=== PATIENT | male | born 1965 | race Two or more races ===

== ENCOUNTER 2021-03-06 06:30 | Inpatient (IN) | payer MEDICAID, OTHER ==
[~2021-03-06] VITALS: Ht 182.9 cm; Wt 127.0 kg
[2021-03-06] MEDS ORDERED: FUROSEMIDE 40 MG/4 ML VIAL IV ONE (06:45)
[2021-03-06 07:13] LABS: Basophils # (auto) 0.1 10 ^3/uL (0-0.2); Basophils % (auto) 0.9 % (0.0-2.0); Eosinophils # (auto) 0.2 10 ^3/uL (0-0.8); Eosinophils % (auto) 2.2 % (0.0-7.0); Hematocrit 29.9 % (41.0-53.0); Lymphocytes # (auto) 0.7 10 ^3/uL (0.4-5.4); Mean Corpuscular Hemoglobin 28.5 pg (28.0-32.0); Mean Corpuscular Hgb Conc. 33.4 g/dL (32.0-36.0); Mean Corpuscular Volume 85.4 fL (80.0-100.0); Monocytes # (auto) 1.2 10 ^3/uL (0-1.3); Monocytes % (auto) 13.8 % (0.0-12.0); Neutrophils # (auto) 6.7 10 ^3/uL (1.6-8.6); Neutrophils % (auto) 75.1 % (37.0-80.0); Red Cell Distribution Width 15.7 % (11.8-14.3); White Blood Cell 8.9 10^3/uL (4.4-10.8)
[2021-03-06 07:26] LABS: INR 1.24 (0.9-1.15)
[2021-03-06 07:37] LABS: Albumin 2.3 g/dL (3.4-5.0); Anion Gap 8 (5-15); Blood Urea Nitrogen 64 mg/dL (7-18); Calcium 8.3 mg/dL (8.5-10.1); Carbon Dioxide 22 mmol/L (21-32); Chloride 112 mmol/L (98-107); Glucose 54 mg/dL (74-106); Potassium 3.8 mmol/L (3.5-5.1); Sodium 142 mmol/L (136-145)
[2021-03-06 07:43] LABS: Alanine Aminotransferase 16 U/L (16-61); Alkaline Phosphatase 255 U/L (45-117); Aspartate Aminotransferase 29 U/L (15-37); BUN/Creatinine Ratio 18.1; GFR African American 23 mL/min; GFR Non-African American 19 mL/min; Total Protein 6.8 g/dL (6.4-8.2)
[2021-03-06] MEDS ORDERED: ALBUTEROL SULF 2.5 MG/0.5ML(0.5%) NEB SOLN NEB PRN (13:00)
[2021-03-06] MEDS ORDERED: MORPHINE SULF INJ 2 MG/ML SYRINGE 1ML IV PRN (13:00)
[2021-03-06] MEDS ORDERED: NITROGLYCERIN 0.4 MG SL TAB SL PRN (13:00)
[2021-03-06 14:20] VITALS: BP 127/87
[2021-03-06] MEDS ORDERED: BUMETANIDE 2.5mg/10ml (0.25 mg/ml) INJ IV ONE (20:45)
[2021-03-06] MEDS ORDERED: PNEUMOCOCCAL VACC POLYS 25 MCG/0.5 ML VIAL IM ONE (21:00)
[2021-03-06 22:00] VITALS: BP 127/89
[2021-03-06] MEDS ORDERED: FUROSEMIDE 40 MG/4 ML VIAL IV SCH (23:15)
[2021-03-07 05:00] VITALS: BP 108/65
[2021-03-07] MEDS: BUMETANIDE 2.5mg/10ml (0.25 mg/ml) INJ IV SCH ×2 (06:21→18:42)
[2021-03-07 06:48] LABS: Basophils # (auto) 0 10 ^3/uL (0-0.2); Basophils % (auto) 0.6 % (0.0-2.0); Eosinophils # (auto) 0.2 10 ^3/uL (0-0.8); Hematocrit 31.6 % (41.0-53.0); Hemoglobin 10.5 g/dL (13.5-17.5); Lymphocytes # (auto) 0.8 10 ^3/uL (0.4-5.4); Lymphocytes % (auto) 10.3 % (10.0-50.0); Mean Corpuscular Hemoglobin 28.7 pg (28.0-32.0); Mean Corpuscular Hgb Conc. 33.4 g/dL (32.0-36.0); Mean Corpuscular Volume 85.9 fL (80.0-100.0); Monocytes # (auto) 1.2 10 ^3/uL (0-1.3); Monocytes % (auto) 14.2 % (0.0-12.0); Neutrophils # (auto) 5.9 10 ^3/uL (1.6-8.6); Neutrophils % (auto) 72.9 % (37.0-80.0); Red Blood Cells 3.67 10^6/uL (4.5-5.90); Red Cell Distribution Width 15.9 % (11.8-14.3); White Blood Cell 8.2 10^3/uL (4.4-10.8)
[2021-03-07 06:56] LABS: Albumin 2.2 g/dL (3.4-5.0); Calcium 8.2 mg/dL (8.5-10.1); Potassium 4.3 mmol/L (3.5-5.1)
[2021-03-07 07:05] LABS: BUN/Creatinine Ratio 18.8; Bilirubin, Direct 1.6 mg/dL (0-0.2); Bilirubin, Total 2.2 mg/dL (0.2-1.0); Total Protein 6.4 g/dL (6.4-8.2)
[2021-03-07 08:18] VITALS: BP 149/81
[2021-03-07] MEDS ORDERED: metOLazone 5 MG TAB PO ONE (11:45)
[2021-03-07 13:00] VITALS: BP 145/93
[2021-03-07 16:25] VITALS: BP 133/79
[2021-03-07] MEDS ORDERED: BUMETANIDE 2.5mg/10ml (0.25 mg/ml) INJ IV SCH (18:00)
[2021-03-07 22:00] VITALS: BP 140/88
[2021-03-08 05:00] VITALS: BP 113/68
[2021-03-08] MEDS: BUMETANIDE 2.5mg/10ml (0.25 mg/ml) INJ IV SCH ×2 (06:50→17:57)
[2021-03-08 08:53] VITALS: BP 108/69
[2021-03-08 12:32] VITALS: BP 135/81
[2021-03-08 14:16] LABS: Calcium 8.3 mg/dL (8.5-10.1); Potassium 4.2 mmol/L (3.5-5.1)
[2021-03-08 14:18] LABS: BUN/Creatinine Ratio 19.5
[2021-03-08 16:51] VITALS: BP 135/95
[2021-03-08] MEDS ORDERED: FURO1TAB31 PO (17:54)
[2021-03-08 18:24] VITALS: BP 135/95
[2021-03-09 08:41] LABS: Hepatitis B Surface Antibody Negative
[2021-03-09 09:18] LABS: Hepatitis A Total Antibody Negative
[2021-03-09 09:41] LABS: Hepatitis B Core Total AB Negative; Hepatitis B Surface Antigen Negative (Negative); Hepatitis C Antibody Negative (Negative)
== END 2021-03-08 19:05 | disposition home health service (06) | DRG 425 ==
LOC: ER 06:30 → TELE 12:47 → TELE-CENTR 21:15
PROVIDERS: ADMIT Internal Medicine; ATTEND Internal Medicine
PROC: 0W9G30Z Drainage of Peritoneal Cavity with Drainage Device, Percutaneous Approach (ICD-10-PCS; principal; 2021-03-06)
DX: E87.70 Fluid overload, unspecified (principal); I50.43 Acute on chronic combined systolic (congestive) and diastolic (congestive) heart failure; N18.6 End stage renal disease; R18.8 Other ascites; E11.22 Type 2 diabetes mellitus with diabetic chronic kidney disease; D64.9 Anemia, unspecified; E78.5 Hyperlipidemia, unspecified; Z20.822 Contact with and (suspected) exposure to COVID-19; I13.2 Hypertensive heart and chronic kidney disease with heart failure and with stage 5 chronic kidney disease, or end stage renal disease; Z79.899 Other long term (current) drug therapy; Z91.15 Patient's noncompliance with renal dialysis; Z91.19 Patient's noncompliance with other medical treatment and regimen; Z99.2 Dependence on renal dialysis; Z88.8 Allergy status to other drugs, medicaments and biological substances
CPT/HCPCS: 36415; 71045; 74176; 76700; 76942; 80048; 80053; 80076; 82306; 82962; 83605; 83880; 84100; 84484; 85025; 85610; 85730; 86704; 86706; 86708; 86803; 87040; 87081; 87205; 87340; 87426; 89051; 93970; 96374; 96375; 99291; G0378

== ENCOUNTER 2021-07-01 11:44 | Emergency (ER) | payer MEDICAID ==
[~2021-07-01] VITALS: Ht 180.3 cm; Wt 117.9 kg
[~2021-07-01 11:44] MED LIST: FURO1TAB31 PO
[2021-07-01 11:58] VITALS: BP 129/70
== END 2021-07-01 18:01 | disposition left against medical advice (07) ==
LOC: ER 11:44
DX: S81.801A Unspecified open wound, right lower leg, initial encounter (principal); Z53.21 Procedure and treatment not carried out due to patient leaving prior to being seen by health care provider; W18.39XA Other fall on same level, initial encounter; Y93.89 Activity, other specified; Y92.89 Other specified places as the place of occurrence of the external cause; Y99.8 Other external cause status

== ENCOUNTER 2021-12-30 16:53 | Inpatient (IN) | payer MEDICAID ==
[~2021-12-30] VITALS: Ht 177.8 cm; Wt 89.0 kg
[2021-12-30 18:22] LABS: Basophils # (auto) 0 10 ^3/uL (0-0.2); Basophils % (auto) 0.2 % (0.0-2.0); Eosinophils # (auto) 0 10 ^3/uL (0-0.8); Hematocrit 28.1 % (41.0-53.0); Hemoglobin 9.3 g/dL (13.5-17.5); Lymphocytes # (auto) 0.6 10 ^3/uL (0.4-5.4); Lymphocytes % (auto) 2.9 % (10.0-50.0); Mean Corpuscular Hemoglobin 28.1 pg (28.0-32.0); Mean Corpuscular Hgb Conc. 33.2 g/dL (32.0-36.0); Mean Corpuscular Volume 84.7 fL (80.0-100.0); Monocytes % (auto) 9.7 % (0.0-12.0); Neutrophils # (auto) 18.4 10 ^3/uL (1.6-8.6); Neutrophils % (auto) 87.2 % (37.0-80.0); Red Blood Cells 3.32 10^6/uL (4.5-5.90); Red Cell Distribution Width 15.1 % (11.8-14.3); White Blood Cell 21.1 10^3/uL (4.4-10.8)
[2021-12-30 18:31] LABS: Albumin 1.6 g/dL (3.4-5.0); BUN/Creatinine Ratio 8.8; Calcium 8.1 mg/dL (8.5-10.1)
[2021-12-30 18:35] LABS: Bilirubin, Total 3.9 mg/dL (0.2-1.0); Total Protein 5.7 g/dL (6.4-8.2)
[2021-12-30] MEDS ORDERED: PIPERACILLIN-TAZOB 3.375GM 100 ML IV ONE (19:30)
[2021-12-30] MEDS ORDERED: VANCOMYCIN 1GM/250ML 250 ML IV ONE (19:30)
[2021-12-30] MEDS ORDERED: SODIUM CHLORIDE 0.9% 3,000 ML IV ONE (19:30)
[2021-12-30] MEDS ORDERED: LOPERAMIDE HCL 2 MG CAP/TAB PO ONE (19:45)
[2021-12-30] MEDS ORDERED: SODIUM CHLORIDE 0.9% 1,000 ML IV ONE (19:45)
[2021-12-30] MEDS ORDERED: ONDANSETRON HCL 4 MG/2 ML VIAL ONE (21:18)
[2021-12-30] MEDS ORDERED: ONDANSETRON HCL 4 MG/2 ML VIAL IV ONE (21:20)
[2021-12-30] MEDS ORDERED: hydrALAZINE HCL 20 MG/ML VL IV PRN ×2 (23:30)
[2021-12-30] MEDS ORDERED: MORPHINE SULFATE INJ 2 MG/ml SYRG IV PRN (23:30)
[2021-12-30] MEDS ORDERED: NITROGLYCERIN 0.4 MG SL TAB SL PRN (23:30)
[2021-12-30] MEDS ORDERED: DEXTROSE (50%) 50ML SYRG IV PRN (23:30)
[2021-12-31] MEDS: cefTRIAXone 1GM/50ML D5W 50 ML IV SCH ×2 (00:10→09:42)
[2021-12-31 00:28] LABS: Albumin 1.7 g/dL (3.4-5.0); BUN/Creatinine Ratio 9.1; Calcium 8.2 mg/dL (8.5-10.1); Potassium 4.1 mmol/L (3.5-5.1)
[2021-12-31 00:30] LABS: Bilirubin, Total 4.2 mg/dL (0.2-1.0); Total Protein 5.6 g/dL (6.4-8.2)
[2021-12-31 03:11] VITALS: BP 101/56
[2021-12-31 05:00] VITALS: BP 97/55
[2021-12-31] MEDS: InsuLIN REG 1unit/0.01ml Soln (100units/ml) SC SCH ×4 (06:01→22:07)
[2021-12-31] MEDS: ACCU-CHEK COMFORT CURVE STRIP VI SCH ×4 (06:01→22:07)
[2021-12-31 07:16] LABS: Basophils # (auto) 0.1 10 ^3/uL (0-0.2); Basophils % (auto) 0.3 % (0.0-2.0); Eosinophils # (auto) 0.3 10 ^3/uL (0-0.8); Eosinophils % (auto) 1.4 % (0.0-7.0); Hematocrit 28.2 % (41.0-53.0); Hemoglobin 9.2 g/dL (13.5-17.5); Lymphocytes # (auto) 0.8 10 ^3/uL (0.4-5.4); Lymphocytes % (auto) 3.9 % (10.0-50.0); Mean Corpuscular Hemoglobin 27.9 pg (28.0-32.0); Mean Corpuscular Hgb Conc. 32.6 g/dL (32.0-36.0); Mean Corpuscular Volume 85.7 fL (80.0-100.0); Monocytes # (auto) 1.8 10 ^3/uL (0-1.3); Neutrophils # (auto) 16.9 10 ^3/uL (1.6-8.6); Neutrophils % (auto) 85.4 % (37.0-80.0); Red Blood Cells 3.29 10^6/uL (4.5-5.90); Red Cell Distribution Width 15.2 % (11.8-14.3); White Blood Cell 19.7 10^3/uL (4.4-10.8)
[2021-12-31 07:31] LABS: BUN/Creatinine Ratio 9.4; Calcium 8.2 mg/dL (8.5-10.1); Potassium 4.3 mmol/L (3.5-5.1)
[2021-12-31] MEDS ORDERED: MIDO10TA2 PO (08:18)
[2021-12-31] MEDS ORDERED: ASPI-543 PO (08:18)
[2021-12-31] MEDS ORDERED: SEVE800T8 PO (08:19)
[2021-12-31] MEDS ORDERED: FURO40TA4 PO (08:19)
[2021-12-31 08:49] VITALS: BP 90/64
[2021-12-31 08:54] LABS: INR 1.23 (0.9-1.15); Partial Thromboplastin Time 31.6 sec (23.6-33.0)
[2021-12-31] MEDS ORDERED: ALBUMIN 25% 100 ML IV ONE (09:15)
[2021-12-31] MEDS: MIDODRINE HCL 10 MG TAB PO SCH ×2 (09:30→18:05)
[2021-12-31] MEDS: HEPARIN SODIUM (PORCINE) 5000 UNITS/ML 1ML VIAL SC SCH ×2 (10:00→22:06)
[2021-12-31 12:49] VITALS: BP 95/53
[2021-12-31 16:20] VITALS: BP 90/48
[2021-12-31 22:00] VITALS: BP 100/56
[2022-01-01 05:00] VITALS: BP 77/39
[2022-01-01] MEDS: ACCU-CHEK COMFORT CURVE STRIP VI SCH ×4 (06:55→23:10)
[2022-01-01] MEDS: MIDODRINE HCL 10 MG TAB PO SCH ×3 (06:55→18:20)
[2022-01-01] MEDS: InsuLIN REG 1unit/0.01ml Soln (100units/ml) SC SCH ×4 (06:56→22:00)
[2022-01-01] MEDS ORDERED: SODIUM CHL 0.9% 1000 ML BAG XX ONE (07:00)
[2022-01-01 08:00] VITALS: BP 105/60
[2022-01-01] MEDS: cefTRIAXone 1GM/50ML D5W 50 ML IV SCH (08:54)
[2022-01-01 10:36] LABS: Basophils # (auto) 0.2 10 ^3/uL (0-0.2); Basophils % (auto) 1.1 % (0.0-2.0); Eosinophils # (auto) 0.2 10 ^3/uL (0-0.8); Eosinophils % (auto) 1.3 % (0.0-7.0); Hematocrit 28.9 % (41.0-53.0); Hemoglobin 9.5 g/dL (13.5-17.5); Lymphocytes # (auto) 0.6 10 ^3/uL (0.4-5.4); Mean Corpuscular Hemoglobin 28.1 pg (28.0-32.0); Mean Corpuscular Hgb Conc. 32.7 g/dL (32.0-36.0); Mean Corpuscular Volume 85.9 fL (80.0-100.0); Monocytes # (auto) 0.9 10 ^3/uL (0-1.3); Neutrophils # (auto) 12.9 10 ^3/uL (1.6-8.6); Neutrophils % (auto) 87.6 % (37.0-80.0); Red Blood Cells 3.36 10^6/uL (4.5-5.90); Red Cell Distribution Width 15.5 % (11.8-14.3); White Blood Cell 14.7 10^3/uL (4.4-10.8)
[2022-01-01] MEDS: DOPamine 1600MCG/ML D5W 250 ML IV SCH (11:44)
[2022-01-01 12:00] VITALS: BP 118/69
[2022-01-01] MEDS: HEPARIN SODIUM (PORCINE) 5000 UNITS/ML 1ML VIAL SC SCH ×2 (12:19→22:00)
[2022-01-01] MEDS: FUROSEMIDE 100 MG/10ML VIAL IV SCH (12:38)
[2022-01-01 16:00] VITALS: BP 111/67
[2022-01-01] MEDS ORDERED: ALBUMIN 25% 100 ML IV ONE (16:15)
[2022-01-01] MEDS ORDERED: EPOETIN ALFA-EPBX 10,000 UNIT/1ML VIAL SC ONE (21:00)
[2022-01-01 22:00] VITALS: BP 110/59
[2022-01-02 05:00] VITALS: BP 118/65
[2022-01-02] MEDS: MIDODRINE HCL 10 MG TAB PO SCH ×3 (06:09→18:16)
[2022-01-02] MEDS: ACCU-CHEK COMFORT CURVE STRIP VI SCH ×4 (06:36→22:07)
[2022-01-02] MEDS: InsuLIN REG 1unit/0.01ml Soln (100units/ml) SC SCH ×4 (06:37→22:00)
[2022-01-02 07:36] LABS: Potassium 4.1 mmol/L (3.5-5.1)
[2022-01-02 07:42] LABS: BUN/Creatinine Ratio 9.2; Calcium 8.7 mg/dL (8.5-10.1)
[2022-01-02 09:00] VITALS: BP 91/50
[2022-01-02] MEDS: cefTRIAXone 1GM/50ML D5W 50 ML IV SCH (09:50)
[2022-01-02] MEDS: HEPARIN SODIUM (PORCINE) 5000 UNITS/ML 1ML VIAL SC SCH ×2 (09:51→22:08)
[2022-01-02] MEDS: HYDROcodone-ACET 5/325MG TAB PO PRN (09:52)
[2022-01-02] MEDS: DOPamine 1600MCG/ML D5W 250 ML IV SCH (10:01)
[2022-01-02] MEDS: FUROSEMIDE 100 MG/10ML VIAL IV SCH (12:13)
[2022-01-02 13:00] VITALS: BP 102/45
[2022-01-02 16:58] VITALS: BP 91/58
[2022-01-02 22:00] VITALS: BP_SYST 115; BP_SYST 137; BP_DIAS 71
[2022-01-03 05:00] VITALS: BP 98/50
[2022-01-03] MEDS: MIDODRINE HCL 10 MG TAB PO SCH ×3 (06:10→17:43)
[2022-01-03] MEDS: ACCU-CHEK COMFORT CURVE STRIP VI SCH ×4 (06:38→22:01)
[2022-01-03] MEDS: InsuLIN REG 1unit/0.01ml Soln (100units/ml) SC SCH ×4 (06:40→22:00)
[2022-01-03 09:00] VITALS: BP 111/66
[2022-01-03] MEDS: cefTRIAXone 1GM/50ML D5W 50 ML IV SCH (09:39)
[2022-01-03] MEDS: FUROSEMIDE 100 MG/10ML VIAL IV SCH (09:39)
[2022-01-03] MEDS: HEPARIN SODIUM (PORCINE) 5000 UNITS/ML 1ML VIAL SC SCH ×2 (09:40→22:16)
[2022-01-03] MEDS ORDERED: VANCOMYCIN PER PHARMACY 0 MG IV SCH (11:45)
[2022-01-03] MEDS ORDERED: VANCOMYCIN 1GM/250ML 250 ML IV ONE (12:45)
[2022-01-03 13:00] VITALS: BP 83/43
[2022-01-03] MEDS: ONDANSETRON HCL 4 MG/2 ML VIAL IV PRN (14:41)
[2022-01-03 17:00] VITALS: BP 102/57
[2022-01-03 22:00] VITALS: BP 97/55
[2022-01-04 05:00] VITALS: BP 82/40
[2022-01-04] MEDS: MIDODRINE HCL 10 MG TAB PO SCH ×3 (05:42→18:00)
[2022-01-04] MEDS: ACCU-CHEK COMFORT CURVE STRIP VI SCH ×4 (06:15→21:47)
[2022-01-04] MEDS: ONDANSETRON HCL 4 MG/2 ML VIAL IV PRN (06:15)
[2022-01-04] MEDS: InsuLIN REG 1unit/0.01ml Soln (100units/ml) SC SCH ×4 (06:15→21:47)
[2022-01-04 07:02] LABS: Hematocrit 30.1 % (41.0-53.0); Hemoglobin 10.1 g/dL (13.5-17.5); Mean Corpuscular Hgb Conc. 33.5 g/dL (32.0-36.0); Mean Corpuscular Volume 83.6 fL (80.0-100.0); Red Blood Cells 3.61 10^6/uL (4.5-5.90); Red Cell Distribution Width 14.9 % (11.8-14.3); White Blood Cell 12.5 10^3/uL (4.4-10.8)
[2022-01-04 07:09] LABS: Basophils % (manual) 0 (0.0-2.0); Blast Cells 0; Metamyelocytes % 0; Myelocytes % 0; Promyelocytes % 0; Reactive Lymphocytes 0
[2022-01-04 07:23] LABS: BUN/Creatinine Ratio 9.1; Calcium 8.5 mg/dL (8.5-10.1); Potassium 4.4 mmol/L (3.5-5.1)
[2022-01-04] MEDS: cefTRIAXone 1GM/50ML D5W 50 ML IV SCH (08:56)
[2022-01-04] MEDS: B-COMPLEX W/ C & FOLIC ACID(NEPHROVITE TAB) PO SCH (08:59)
[2022-01-04 09:00] VITALS: BP 85/43
[2022-01-04] MEDS: HEPARIN SODIUM (PORCINE) 5000 UNITS/ML 1ML VIAL SC SCH ×2 (09:00→21:47)
[2022-01-04] MEDS: Nepro With Carbsteady Vanilla 8oz Carton PO SCH (09:03)
[2022-01-04] MEDS: FUROSEMIDE 100 MG/10ML VIAL IV SCH (10:00)
[2022-01-04 12:00] VITALS: BP 89/46
[2022-01-04 13:15] LABS: Band Neutrophils % (manual) 5; Eosinophils % (manual) 2 (0-7); Lymphocytes % (manual) 6 (10.0-50.0); Monocytes % (manual) 7 (0-12)
[2022-01-04] MEDS ORDERED: VANCOMYCIN 1GM/250ML 250 ML IV ONE (14:00)
[2022-01-04 17:00] VITALS: BP 113/46
[2022-01-04 22:00] VITALS: BP 99/63
[2022-01-05 04:00] VITALS: BP 97/55
[2022-01-05 05:26] LABS: Basophils # (auto) 0.1 10 ^3/uL (0-0.2); Basophils % (auto) 0.5 % (0.0-2.0); Eosinophils # (auto) 0.3 10 ^3/uL (0-0.8); Eosinophils % (auto) 2.6 % (0.0-7.0); Hematocrit 29.3 % (41.0-53.0); Hemoglobin 9.9 g/dL (13.5-17.5); Lymphocytes # (auto) 0.9 10 ^3/uL (0.4-5.4); Lymphocytes % (auto) 8.1 % (10.0-50.0); Mean Corpuscular Hemoglobin 28.2 pg (28.0-32.0); Mean Corpuscular Hgb Conc. 33.7 g/dL (32.0-36.0); Mean Corpuscular Volume 83.9 fL (80.0-100.0); Monocytes % (auto) 8.9 % (0.0-12.0); Neutrophils % (auto) 79.9 % (37.0-80.0); Red Blood Cells 3.49 10^6/uL (4.5-5.90); Red Cell Distribution Width 14.9 % (11.8-14.3); White Blood Cell 11.3 10^3/uL (4.4-10.8)
[2022-01-05] MEDS: ACCU-CHEK COMFORT CURVE STRIP VI SCH ×4 (05:27→21:31)
[2022-01-05] MEDS: InsuLIN REG 1unit/0.01ml Soln (100units/ml) SC SCH ×4 (05:27→21:30)
[2022-01-05] MEDS: MIDODRINE HCL 10 MG TAB PO SCH ×3 (05:27→17:07)
[2022-01-05 05:41] LABS: Calcium 8.5 mg/dL (8.5-10.1); Potassium 4.7 mmol/L (3.5-5.1)
[2022-01-05 05:47] LABS: BUN/Creatinine Ratio 9.3
[2022-01-05 09:00] VITALS: BP 101/48
[2022-01-05] MEDS: cefTRIAXone 1GM/50ML D5W 50 ML IV SCH (09:32)
[2022-01-05] MEDS: HEPARIN SODIUM (PORCINE) 5000 UNITS/ML 1ML VIAL SC SCH ×2 (09:33→21:56)
[2022-01-05] MEDS: FUROSEMIDE 100 MG/10ML VIAL IV SCH (09:33)
[2022-01-05] MEDS: B-COMPLEX W/ C & FOLIC ACID(NEPHROVITE TAB) PO SCH (09:33)
[2022-01-05] MEDS: Nepro With Carbsteady Vanilla 8oz Carton PO SCH (09:33)
[2022-01-05] MEDS ORDERED: ALBUMIN 25% 100 ML IV PRN (10:45)
[2022-01-05] MEDS ORDERED: SODIUM CHL 0.9% 1000 ML BAG XX ONE (10:45)
[2022-01-05 13:00] VITALS: BP 93/45
[2022-01-05 17:00] VITALS: BP 90/49
[2022-01-05] MEDS ORDERED: EPOETIN ALFA-EPBX 10,000 UNIT/1ML VIAL SC ONE (21:00)
[2022-01-05 22:00] VITALS: BP 108/54
[2022-01-05] MEDS ORDERED: VANCOMYCIN 500 MG in D5W 5% 100 ML IV ONE (22:30)
[2022-01-06 05:00] VITALS: BP 101/54
[2022-01-06] MEDS: MIDODRINE HCL 10 MG TAB PO SCH ×3 (05:46→17:09)
[2022-01-06] MEDS: ACCU-CHEK COMFORT CURVE STRIP VI SCH ×4 (06:10→22:33)
[2022-01-06] MEDS: InsuLIN REG 1unit/0.01ml Soln (100units/ml) SC SCH ×4 (06:10→22:00)
[2022-01-06 09:00] VITALS: BP 102/55
[2022-01-06] MEDS: cefTRIAXone 1GM/50ML D5W 50 ML IV SCH (09:04)
[2022-01-06] MEDS: FUROSEMIDE 100 MG/10ML VIAL IV SCH (09:04)
[2022-01-06] MEDS: B-COMPLEX W/ C & FOLIC ACID(NEPHROVITE TAB) PO SCH (09:04)
[2022-01-06 09:29] LABS: Calcium 8.8 mg/dL (8.5-10.1); Potassium 3.9 mmol/L (3.5-5.1)
[2022-01-06 09:32] LABS: BUN/Creatinine Ratio 8.4
[2022-01-06] MEDS: HEPARIN SODIUM (PORCINE) 5000 UNITS/ML 1ML VIAL SC SCH ×2 (10:18→22:33)
[2022-01-06] MEDS: Nepro With Carbsteady Vanilla 8oz Carton PO SCH (10:19)
[2022-01-06 12:53] LABS: INR 1.19 (0.9-1.15); Partial Thromboplastin Time 31.2 sec (23.6-33.0)
[2022-01-06 13:00] VITALS: BP 128/84
[2022-01-06 17:00] VITALS: BP 124/76
[2022-01-06 22:00] VITALS: BP 100/53
[2022-01-07 05:00] VITALS: BP 106/57
[2022-01-07] MEDS: MIDODRINE HCL 10 MG TAB PO SCH ×3 (05:49→17:13)
[2022-01-07] MEDS: ACCU-CHEK COMFORT CURVE STRIP VI SCH ×4 (06:22→22:02)
[2022-01-07] MEDS: InsuLIN REG 1unit/0.01ml Soln (100units/ml) SC SCH ×4 (06:23→22:00)
[2022-01-07 08:00] VITALS: BP 143/87
[2022-01-07] MEDS ORDERED: ALBUMIN 25% 100 ML IV ONE (08:30)
[2022-01-07 09:00] VITALS: BP_SYST 143; BP_DIAS 65; BP_DIAS 87
[2022-01-07] MEDS ORDERED: SODIUM CHL 0.9% 1000 ML BAG XX ONE (09:45)
[2022-01-07] MEDS: cefTRIAXone 1GM/50ML D5W 50 ML IV SCH (09:48)
[2022-01-07] MEDS: FUROSEMIDE 100 MG/10ML VIAL IV SCH (09:48)
[2022-01-07] MEDS: B-COMPLEX W/ C & FOLIC ACID(NEPHROVITE TAB) PO SCH (09:48)
[2022-01-07] MEDS: HEPARIN SODIUM (PORCINE) 5000 UNITS/ML 1ML VIAL SC SCH ×2 (09:49→22:00)
[2022-01-07] MEDS: Nepro With Carbsteady Vanilla 8oz Carton PO SCH (10:00)
[2022-01-07 12:45] VITALS: BP 131/82
[2022-01-07 16:47] VITALS: BP 131/81
[2022-01-07] MEDS: MORPHINE SULFATE INJ 2 MG/ml SYRG IV PRN (17:14)
[2022-01-07] MEDS ORDERED: ALBUMIN 25% IV ONE (17:54)
[2022-01-07] MEDS ORDERED: EPOETIN ALFA-EPBX 10,000 UNIT/1ML VIAL SC ONE (21:00)
[2022-01-07 22:40] VITALS: BP 103/56
[2022-01-08 04:48] VITALS: BP 109/62
[2022-01-08] MEDS: ACCU-CHEK COMFORT CURVE STRIP VI SCH ×4 (06:16→21:35)
[2022-01-08] MEDS: InsuLIN REG 1unit/0.01ml Soln (100units/ml) SC SCH ×4 (06:16→21:35)
[2022-01-08] MEDS: MIDODRINE HCL 10 MG TAB PO SCH ×3 (06:16→18:06)
[2022-01-08] MEDS ORDERED: SODIUM CHL 0.9% 1000 ML BAG XX ONE (07:00)
[2022-01-08 08:00] VITALS: BP 122/70
[2022-01-08] MEDS: Nepro With Carbsteady Vanilla 8oz Carton PO SCH (10:00)
[2022-01-08] MEDS: B-COMPLEX W/ C & FOLIC ACID(NEPHROVITE TAB) PO SCH (10:05)
[2022-01-08] MEDS: FUROSEMIDE 100 MG/10ML VIAL IV SCH (10:05)
[2022-01-08] MEDS: HEPARIN SODIUM (PORCINE) 5000 UNITS/ML 1ML VIAL SC SCH ×2 (10:22→21:34)
[2022-01-08 11:10] LABS: Basophils # (auto) 0.1 10 ^3/uL (0-0.2); Basophils % (auto) 0.7 % (0.0-2.0); Eosinophils # (auto) 0.2 10 ^3/uL (0-0.8); Eosinophils % (auto) 1.7 % (0.0-7.0); Hemoglobin 9.8 g/dL (13.5-17.5); Lymphocytes # (auto) 0.8 10 ^3/uL (0.4-5.4); Lymphocytes % (auto) 7.9 % (10.0-50.0); Mean Corpuscular Hemoglobin 27.9 pg (28.0-32.0); Mean Corpuscular Hgb Conc. 32.7 g/dL (32.0-36.0); Mean Corpuscular Volume 85.4 fL (80.0-100.0); Monocytes # (auto) 0.7 10 ^3/uL (0-1.3); Monocytes % (auto) 6.6 % (0.0-12.0); Neutrophils # (auto) 8.2 10 ^3/uL (1.6-8.6); Neutrophils % (auto) 83.1 % (37.0-80.0); Red Blood Cells 3.51 10^6/uL (4.5-5.90); Red Cell Distribution Width 15.4 % (11.8-14.3); White Blood Cell 9.9 10^3/uL (4.4-10.8)
[2022-01-08 11:33] LABS: BUN/Creatinine Ratio 8.1; Calcium 8.4 mg/dL (8.5-10.1); Potassium 4.5 mmol/L (3.5-5.1)
[2022-01-08 12:00] VITALS: BP 100/53
[2022-01-08 13:34] LABS: Hepatitis B Surface Antibody Negative (Negative)
[2022-01-08 14:11] LABS: Hepatitis A Total Antibody Negative (Negative)
[2022-01-08 14:29] LABS: Hepatitis C Antibody Negative (Negative)
[2022-01-08 16:00] VITALS: BP 112/68
[2022-01-08] MEDS: HYDROcodone-ACET 5/325MG TAB PO PRN (18:06)
[2022-01-08] MEDS ORDERED: VANCOMYCIN 750mg/250ml 250 ML IV ONE (20:00)
[2022-01-08] MEDS ORDERED: EPOETIN ALFA-EPBX 10,000 UNIT/1ML VIAL SC ONE (21:00)
[2022-01-08 22:00] VITALS: BP 119/50
[2022-01-09] MEDS: ACCU-CHEK COMFORT CURVE STRIP VI SCH ×4 (05:36→23:17)
[2022-01-09] MEDS: MIDODRINE HCL 10 MG TAB PO SCH ×3 (05:36→17:59)
[2022-01-09] MEDS: InsuLIN REG 1unit/0.01ml Soln (100units/ml) SC SCH ×4 (05:36→22:00)
[2022-01-09 06:00] VITALS: BP 124/68
[2022-01-09 07:33] LABS: Basophils # (auto) 0 10 ^3/uL (0-0.2); Basophils % (auto) 0.4 % (0.0-2.0); Eosinophils # (auto) 0.2 10 ^3/uL (0-0.8); Eosinophils % (auto) 2.1 % (0.0-7.0); Hematocrit 30.6 % (41.0-53.0); Hemoglobin 10.1 g/dL (13.5-17.5); Mean Corpuscular Hemoglobin 28.6 pg (28.0-32.0); Mean Corpuscular Hgb Conc. 33.1 g/dL (32.0-36.0); Mean Corpuscular Volume 86.4 fL (80.0-100.0); Monocytes # (auto) 0.9 10 ^3/uL (0-1.3); Monocytes % (auto) 8.5 % (0.0-12.0); Neutrophils # (auto) 8.9 10 ^3/uL (1.6-8.6); Nucleated Red Blood Cells % 0.1 %; Red Blood Cells 3.54 10^6/uL (4.5-5.90); Red Cell Distribution Width 15.6 % (11.8-14.3); White Blood Cell 11.2 10^3/uL (4.4-10.8)
[2022-01-09 07:45] LABS: BUN/Creatinine Ratio 8.4; Calcium 8.7 mg/dL (8.5-10.1); Magnesium 2.8 mg/dL (1.6-2.6)
[2022-01-09 08:00] VITALS: BP 114/63
[2022-01-09 09:00] VITALS: BP 114/63
[2022-01-09] MEDS: Nepro With Carbsteady Vanilla 8oz Carton PO SCH (10:00)
[2022-01-09 13:00] VITALS: BP 124/82
[2022-01-09] MEDS: B-COMPLEX W/ C & FOLIC ACID(NEPHROVITE TAB) PO SCH (15:11)
[2022-01-09] MEDS: FUROSEMIDE 100 MG/10ML VIAL IV SCH (15:11)
[2022-01-09] MEDS: HEPARIN SODIUM (PORCINE) 5000 UNITS/ML 1ML VIAL SC SCH ×2 (15:16→22:00)
[2022-01-09] MEDS: MORPHINE SULFATE INJ 2 MG/ml SYRG IV PRN (16:31)
[2022-01-09 17:00] VITALS: BP 116/61
[2022-01-09 22:00] VITALS: BP 110/58
[2022-01-10 05:00] VITALS: BP 91/55
[2022-01-10] MEDS: MIDODRINE HCL 10 MG TAB PO SCH ×3 (06:44→18:08)
[2022-01-10] MEDS: InsuLIN REG 1unit/0.01ml Soln (100units/ml) SC SCH ×4 (06:54→22:00)
[2022-01-10] MEDS: ACCU-CHEK COMFORT CURVE STRIP VI SCH ×4 (06:54→22:43)
[2022-01-10 09:00] VITALS: BP 93/52
[2022-01-10] MEDS: B-COMPLEX W/ C & FOLIC ACID(NEPHROVITE TAB) PO SCH (09:49)
[2022-01-10] MEDS: Nepro With Carbsteady Vanilla 8oz Carton PO SCH (09:50)
[2022-01-10] MEDS: HEPARIN SODIUM (PORCINE) 5000 UNITS/ML 1ML VIAL SC SCH ×2 (09:50→22:43)
[2022-01-10] MEDS: FUROSEMIDE 100 MG/10ML VIAL IV SCH (09:50)
[2022-01-10 13:00] VITALS: BP 107/58
[2022-01-10 17:00] VITALS: BP 102/53
[2022-01-10] MEDS: HYDROcodone-ACET 5/325MG TAB PO PRN (20:30)
[2022-01-10 22:00] VITALS: BP 103/52
[2022-01-11 05:00] VITALS: BP 99/59
[2022-01-11 06:02] LABS: BUN/Creatinine Ratio 8.3; Calcium 8.6 mg/dL (8.5-10.1); Potassium 4.8 mmol/L (3.5-5.1)
[2022-01-11] MEDS: MIDODRINE HCL 10 MG TAB PO SCH ×3 (06:30→17:50)
[2022-01-11] MEDS: ACCU-CHEK COMFORT CURVE STRIP VI SCH ×4 (06:49→21:27)
[2022-01-11] MEDS: InsuLIN REG 1unit/0.01ml Soln (100units/ml) SC SCH ×4 (06:49→21:36)
[2022-01-11 09:00] VITALS: BP 129/74
[2022-01-11] MEDS: Nepro With Carbsteady Vanilla 8oz Carton PO SCH (09:36)
[2022-01-11] MEDS: B-COMPLEX W/ C & FOLIC ACID(NEPHROVITE TAB) PO SCH (09:36)
[2022-01-11] MEDS: FUROSEMIDE 100 MG/10ML VIAL IV SCH (09:36)
[2022-01-11] MEDS: HEPARIN SODIUM (PORCINE) 5000 UNITS/ML 1ML VIAL SC SCH ×2 (09:37→21:42)
[2022-01-11 13:23] VITALS: BP 101/57
[2022-01-11 17:00] VITALS: BP 98/54
[2022-01-11] MEDS: HYDROcodone-ACET 5/325MG TAB PO PRN (21:48)
[2022-01-11 22:00] VITALS: BP 98/46
[2022-01-12 05:00] VITALS: BP 100/55
[2022-01-12] MEDS: MIDODRINE HCL 10 MG TAB PO SCH ×3 (06:20→18:33)
[2022-01-12 06:24] LABS: Albumin 2.2 g/dL (3.4-5.0); Calcium 8.6 mg/dL (8.5-10.1); Potassium 5.1 mmol/L (3.5-5.1)
[2022-01-12] MEDS: ACCU-CHEK COMFORT CURVE STRIP VI SCH ×4 (06:24→21:24)
[2022-01-12] MEDS: InsuLIN REG 1unit/0.01ml Soln (100units/ml) SC SCH ×4 (06:24→21:34)
[2022-01-12 06:27] LABS: Bilirubin, Total 1.4 mg/dL (0.2-1.0); Total Protein 6.5 g/dL (6.4-8.2)
[2022-01-12] MEDS ORDERED: SODIUM CHL 0.9% 1000 ML BAG XX ONE (07:00)
[2022-01-12 09:00] VITALS: BP 109/56
[2022-01-12] MEDS: HEPARIN SODIUM (PORCINE) 5000 UNITS/ML 1ML VIAL SC SCH ×2 (10:00→21:25)
[2022-01-12] MEDS: Nepro With Carbsteady Vanilla 8oz Carton PO SCH (10:02)
[2022-01-12] MEDS: B-COMPLEX W/ C & FOLIC ACID(NEPHROVITE TAB) PO SCH (10:02)
[2022-01-12] MEDS: FUROSEMIDE 100 MG/10ML VIAL IV SCH (10:02)
[2022-01-12 12:56] VITALS: BP 95/58
[2022-01-12 17:00] VITALS: BP 106/60
[2022-01-12] MEDS: HYDROcodone-ACET 5/325MG TAB PO PRN (19:51)
[2022-01-12] MEDS ORDERED: EPOETIN ALFA-EPBX 10,000 UNIT/1ML VIAL SC ONE (21:00)
[2022-01-12 22:00] VITALS: BP 101/54
[2022-01-13 04:52] LABS: Hematocrit 29.5 % (41.0-53.0); Hemoglobin 9.5 g/dL (13.5-17.5)
[2022-01-13 05:00] VITALS: BP 101/56
[2022-01-13 05:09] LABS: % Iron Saturation 16.8 % (20-55)
[2022-01-13] MEDS: MIDODRINE HCL 10 MG TAB PO SCH ×3 (06:05→18:00)
[2022-01-13] MEDS: InsuLIN REG 1unit/0.01ml Soln (100units/ml) SC SCH ×3 (06:05→17:00)
[2022-01-13] MEDS: ACCU-CHEK COMFORT CURVE STRIP VI SCH ×3 (06:07→17:00)
[2022-01-13] MEDS ORDERED: SODIUM CHL 0.9% 1000 ML BAG XX ONE (07:00)
[2022-01-13 09:03] VITALS: BP 123/76
[2022-01-13] MEDS: Nepro With Carbsteady Vanilla 8oz Carton PO SCH (10:00)
[2022-01-13] MEDS: B-COMPLEX W/ C & FOLIC ACID(NEPHROVITE TAB) PO SCH (11:24)
[2022-01-13] MEDS: HEPARIN SODIUM (PORCINE) 5000 UNITS/ML 1ML VIAL SC SCH (11:24)
[2022-01-13 11:33] VITALS: BP 123/76
[2022-01-13] MEDS: FUROSEMIDE 100 MG/10ML VIAL IV SCH (12:07)
[2022-01-13 13:00] VITALS: BP 109/59
[2022-01-13] MEDS ORDERED: VANCOMYCIN 750mg/250ml 250 ML IV ONE (14:45)
[2022-01-13 16:52] VITALS: BP 117/74
== END 2022-01-13 18:15 | DRG 720 ==
LOC: ER 16:53 → EDBD 16:53 → EDUNIT# 16:53 → TELE 23:19 → TELE-EAST 12-31 02:22
PROVIDERS: ADMIT Hospitalist; ATTEND Hospitalist
PROC: 0W9G3ZZ Drainage of Peritoneal Cavity, Percutaneous Approach (ICD-10-PCS; principal; 2021-12-31)
PROC: 5A1D70Z Performance of Urinary Filtration, Intermittent, Less than 6 Hours Per Day (ICD-10-PCS; 2022-01-01)
PROC: 5A1D70Z Performance of Urinary Filtration, Intermittent, Less than 6 Hours Per Day (ICD-10-PCS; 2022-01-05)
PROC: 0W9G3ZZ Drainage of Peritoneal Cavity, Percutaneous Approach (ICD-10-PCS; 2022-01-06)
PROC: 5A1D70Z Performance of Urinary Filtration, Intermittent, Less than 6 Hours Per Day (ICD-10-PCS; 2022-01-07)
PROC: 5A1D70Z Performance of Urinary Filtration, Intermittent, Less than 6 Hours Per Day (ICD-10-PCS; 2022-01-09)
PROC: 5A1D70Z Performance of Urinary Filtration, Intermittent, Less than 6 Hours Per Day (ICD-10-PCS; 2022-01-13)
DX: A41.9 Sepsis, unspecified organism (principal); J96.01 Acute respiratory failure with hypoxia; I13.2 Hypertensive heart and chronic kidney disease with heart failure and with stage 5 chronic kidney disease, or end stage renal disease; J15.212 Pneumonia due to Methicillin resistant Staphylococcus aureus; N18.6 End stage renal disease; R18.8 Other ascites; D63.1 Anemia in chronic kidney disease; E88.09 Other disorders of plasma-protein metabolism, not elsewhere classified; E11.22 Type 2 diabetes mellitus with diabetic chronic kidney disease; Z20.822 Contact with and (suspected) exposure to COVID-19; E11.51 Type 2 diabetes mellitus with diabetic peripheral angiopathy without gangrene; E66.9 Obesity, unspecified; I50.9 Heart failure, unspecified; R19.7 Diarrhea, unspecified; K74.60 Unspecified cirrhosis of liver; F10.10 Alcohol abuse, uncomplicated; J98.11 Atelectasis; Z68.36 Body mass index [BMI] 36.0-36.9, adult; Z79.899 Other long term (current) drug therapy; Z91.19 Patient's noncompliance with other medical treatment and regimen; Z99.2 Dependence on renal dialysis; Z88.8 Allergy status to other drugs, medicaments and biological substances
CPT/HCPCS: 36415; 71045; 76700; 76705; 76942; 80048; 80053; 80202; 80320; 82728; 82962; 83540; 83550; 83605; 83735; 83986; 85007; 85014; 85018; 85025; 85027; 85610; 85730; 86704; 86706; 86708; 86803; 87040; 87070; 87077; 87081; 87186; 87205; 87340; 89051; 90935; 93005; 93971; 96365; 96368; 96375; 97110; 97116; 97163; 97530; G0378; J0696; J1815; J2405; J7060; P9047

== ENCOUNTER 2022-03-02 14:45 | Inpatient (IN) | payer MEDICAID ==
[~2022-03-02] VITALS: Ht 177.8 cm; Wt 93.9 kg
[~2022-03-02 14:45] MED LIST changes: +ASPI-543 PO; -FURO1TAB31 PO; +FURO40TA4 PO; +MIDO10TA2 PO; +SEVE800T8 PO
[2022-03-02 15:50] LABS: Basophils # (auto) 0.1 10 ^3/uL (0-0.2); Eosinophils # (auto) 0.2 10 ^3/uL (0-0.8); Lymphocytes % (auto) 9.8 % (10.0-50.0); Mean Corpuscular Hgb Conc. 31.7 g/dL (32.0-36.0); Monocytes # (auto) 0.9 10 ^3/uL (0-1.3)
[2022-03-02 15:52] LABS: Basophils % (auto) 0.7 % (0.0-2.0); Hematocrit 24.8 % (41.0-53.0); Hemoglobin 7.8 g/dL (13.5-17.5); Mean Corpuscular Hemoglobin 27.1 pg (28.0-32.0); Mean Corpuscular Volume 85.8 fL (80.0-100.0); Monocytes % (auto) 8.9 % (0.0-12.0); Neutrophils # (auto) 8.1 10 ^3/uL (1.6-8.6); Neutrophils % (auto) 78.6 % (37.0-80.0); Nucleated Red Blood Cells % 0.1 %; Red Blood Cells 2.89 10^6/uL (4.5-5.90); Red Cell Distribution Width 18.7 % (11.8-14.3); White Blood Cell 10.3 10^3/uL (4.4-10.8)
[2022-03-02 16:07] LABS: INR 1.18 (0.9-1.15); Partial Thromboplastin Time 32.7 sec (24.6-33.4)
[2022-03-02 16:09] LABS: Albumin 2.4 g/dL (3.4-5.0); Calcium 8.4 mg/dL (8.5-10.1); Potassium 4.7 mmol/L (3.5-5.1)
[2022-03-02 16:13] LABS: Bilirubin, Total 1.2 mg/dL (0.2-1.0); Total Protein 7.2 g/dL (6.4-8.2)
[2022-03-02] MEDS ORDERED: DEXTROSE (50%) 50ML SYRG IV PRN (20:45)
[2022-03-02] MEDS ORDERED: MORPHINE SULFATE INJ 2 MG/ml SYRG IV PRN (20:45)
[2022-03-02] MEDS ORDERED: NITROGLYCERIN 0.4 MG SL TAB SL PRN (20:45)
[2022-03-02] MEDS ORDERED: TEMAZEPAM 15 MG CAP PO PRN (20:45)
[2022-03-02] MEDS ORDERED: ONDANSETRON HCL 4 MG/2 ML VIAL IV PRN (20:45)
[2022-03-02] MEDS ORDERED: FUROSEMIDE 100 MG/10ML VIAL IV ONE (20:45)
[2022-03-02] MEDS ORDERED: CARVEDILOL 3.125 MG TAB PO SCH (22:00)
[2022-03-02] MEDS: ATORVASTATIN 20 MG TAB PO SCH (22:00)
[2022-03-03] MEDS: ACCU-CHEK COMFORT CURVE STRIP VI SCH ×5 (00:08→23:30)
[2022-03-03 06:00] LABS: Basophils # (auto) 0.1 10 ^3/uL (0-0.2); Basophils % (auto) 0.6 % (0.0-2.0); Eosinophils # (auto) 0.2 10 ^3/uL (0-0.8); Eosinophils % (auto) 2.4 % (0.0-7.0); Hematocrit 24.9 % (41.0-53.0); Lymphocytes # (auto) 0.8 10 ^3/uL (0.4-5.4); Lymphocytes % (auto) 8.7 % (10.0-50.0); Mean Corpuscular Hemoglobin 27.3 pg (28.0-32.0); Mean Corpuscular Volume 85.2 fL (80.0-100.0); Monocytes # (auto) 0.8 10 ^3/uL (0-1.3); Monocytes % (auto) 8.2 % (0.0-12.0); Neutrophils # (auto) 7.3 10 ^3/uL (1.6-8.6); Neutrophils % (auto) 80.1 % (37.0-80.0); Nucleated Red Blood Cells % 0.1 %; Red Blood Cells 2.93 10^6/uL (4.5-5.90); Red Cell Distribution Width 18.2 % (11.8-14.3); White Blood Cell 9.1 10^3/uL (4.4-10.8)
[2022-03-03] MEDS ORDERED: MIDODRINE HCL 10 MG TAB PO SCH (06:00)
[2022-03-03] MEDS: InsuLIN REG 1unit/0.01ml Soln (100units/ml) SC SCH ×4 (06:00→18:44)
[2022-03-03 06:14] LABS: Albumin 2.4 g/dL (3.4-5.0); Calcium 8.6 mg/dL (8.5-10.1); Potassium 4.9 mmol/L (3.5-5.1)
[2022-03-03] MEDS: FUROSEMIDE 40 MG TAB PO SCH ×2 (06:16→18:37)
[2022-03-03 06:19] LABS: BUN/Creatinine Ratio 8.6; Bilirubin, Total 1.4 mg/dL (0.2-1.0); Total Protein 7.3 g/dL (6.4-8.2)
[2022-03-03] MEDS ORDERED: SODIUM CHL 0.9% 1000 ML BAG XX ONE (09:15)
[2022-03-03 09:50] LABS: % Iron Saturation 9.3 % (20-55)
[2022-03-03] MEDS: PANTOPRAZOLE 40 MG/10 ML VIAL INJ IV SCH (10:22)
[2022-03-03] MEDS: SEVELAMER 800 MG TAB PO SCH ×4 (10:22→18:37)
[2022-03-03] MEDS: MIDODRINE HCL 10 MG TAB PO SCH ×2 (12:00→13:36)
[2022-03-03 13:00] VITALS: BP 124/82
[2022-03-03] MEDS ORDERED: ALBUMIN 25% 100 ML IV ONE ×2 (13:00→13:45)
[2022-03-03 17:00] VITALS: BP 115/70
[2022-03-03] MEDS: TAMSULOSIN HYDROCHLORIDE 0.4 MG CAP PO SCH (18:36)
[2022-03-03] MEDS: SODIUM FERR GLUC 62.5MG/5ML 125 MG in SODIUM CHL 0.9% 100 ML IV SCH (18:57)
[2022-03-03 20:00] VITALS: BP 131/70
[2022-03-03] MEDS ORDERED: EPOETIN ALFA-EPBX 10,000 UNIT/1ML VIAL SC ONE (21:00)
[2022-03-03 22:00] VITALS: BP 131/70
[2022-03-03] MEDS: ATORVASTATIN 20 MG TAB PO SCH (22:00)
[2022-03-03] MEDS ORDERED: LORATADINE 10 MG TAB PO PRN (22:45)
[2022-03-04] VITALS (7 sets, daily range): BP systolic 78–120; BP diastolic 34–85
[2022-03-04] MEDS: FUROSEMIDE 40 MG TAB PO SCH ×2 (05:20→18:00)
[2022-03-04 05:25] LABS: Eosinophils # (auto) 0.1 10 ^3/uL (0-0.8); Nucleated Red Blood Cells % 0.1 %
[2022-03-04 05:28] LABS: Basophils # (auto) 0.1 10 ^3/uL (0-0.2); Basophils % (auto) 0.6 % (0.0-2.0); Eosinophils % (auto) 1.1 % (0.0-7.0); Hematocrit 24.1 % (41.0-53.0); Lymphocytes # (auto) 0.8 10 ^3/uL (0.4-5.4); Lymphocytes % (auto) 8.5 % (10.0-50.0); Mean Corpuscular Hemoglobin 28.5 pg (28.0-32.0); Mean Corpuscular Hgb Conc. 33.2 g/dL (32.0-36.0); Mean Corpuscular Volume 85.9 fL (80.0-100.0); Neutrophils # (auto) 7.9 10 ^3/uL (1.6-8.6); Neutrophils % (auto) 79.8 % (37.0-80.0); Red Blood Cells 2.81 10^6/uL (4.5-5.90); Red Cell Distribution Width 18.4 % (11.8-14.3); White Blood Cell 9.9 10^3/uL (4.4-10.8)
[2022-03-04] MEDS: MIDODRINE HCL 10 MG TAB PO SCH ×3 (05:38→18:20)
[2022-03-04] MEDS: InsuLIN REG 1unit/0.01ml Soln (100units/ml) SC SCH ×4 (05:39→18:00)
[2022-03-04] MEDS: ACCU-CHEK COMFORT CURVE STRIP VI SCH ×3 (05:39→18:20)
[2022-03-04 05:47] LABS: BUN/Creatinine Ratio 7.8; Calcium 8.8 mg/dL (8.5-10.1); Magnesium 2.7 mg/dL (1.6-2.6); Potassium 4.4 mmol/L (3.5-5.1)
[2022-03-04] MEDS: SEVELAMER 800 MG TAB PO SCH ×4 (08:00→18:00)
[2022-03-04] MEDS: PANTOPRAZOLE 40 MG/10 ML VIAL INJ IV SCH (10:09)
[2022-03-04] MEDS: SODIUM FERR GLUC 62.5MG/5ML 125 MG in SODIUM CHL 0.9% 100 ML IV SCH (12:00)
[2022-03-04] MEDS ORDERED: ALBUMIN 25% 100 ML IV ONE (14:00)
[2022-03-04] MEDS ORDERED: ALBUMIN 25% 100 ML IV PRN (14:30)
[2022-03-04] MEDS: ALBUMIN 25% 50 ML IV ONE (15:00)
[2022-03-04] MEDS: TAMSULOSIN HYDROCHLORIDE 0.4 MG CAP PO SCH (18:00)
[2022-03-04] MEDS: ATORVASTATIN 20 MG TAB PO SCH (22:00)
[2022-03-05 05:00] VITALS: BP 97/62
[2022-03-05] MEDS: FUROSEMIDE 40 MG TAB PO SCH ×2 (06:00→18:13)
[2022-03-05] MEDS: InsuLIN REG 1unit/0.01ml Soln (100units/ml) SC SCH ×4 (06:00→17:31)
[2022-03-05] MEDS: MIDODRINE HCL 10 MG TAB PO SCH ×3 (06:16→17:37)
[2022-03-05] MEDS: ACCU-CHEK COMFORT CURVE STRIP VI SCH ×4 (06:18→17:31)
[2022-03-05 06:20] LABS: BUN/Creatinine Ratio 8.2; Calcium 8.4 mg/dL (8.5-10.1); Potassium 4.9 mmol/L (3.5-5.1)
[2022-03-05] MEDS ORDERED: SODIUM CHL 0.9% 1000 ML BAG XX ONE (07:00)
[2022-03-05 08:45] VITALS: BP 111/60
[2022-03-05] MEDS: SEVELAMER 800 MG TAB PO SCH ×3 (08:58→17:31)
[2022-03-05] MEDS ORDERED: LOPERAMIDE HCL 2 MG CAP/TAB PO ONE (09:30)
[2022-03-05] MEDS: PANTOPRAZOLE 40 MG/10 ML VIAL INJ IV SCH (10:11)
[2022-03-05] MEDS: SODIUM FERR GLUC 62.5MG/5ML 125 MG in SODIUM CHL 0.9% 100 ML IV SCH (11:42)
[2022-03-05 12:39] VITALS: BP 101/55
[2022-03-05 16:35] VITALS: BP 104/60
[2022-03-05] MEDS: TAMSULOSIN HYDROCHLORIDE 0.4 MG CAP PO SCH (17:36)
[2022-03-05] MEDS ORDERED: EPOETIN ALFA-EPBX 10,000 UNIT/1ML VIAL SC ONE (21:00)
[2022-03-05 22:00] VITALS: BP 100/49
[2022-03-05] MEDS: ATORVASTATIN 20 MG TAB PO SCH ×2 (22:00→22:13)
[2022-03-06 05:00] VITALS: BP 95/29
[2022-03-06] MEDS: ACCU-CHEK COMFORT CURVE STRIP VI SCH ×4 (06:00→18:17)
[2022-03-06] MEDS: FUROSEMIDE 40 MG TAB PO SCH ×2 (06:00→18:00)
[2022-03-06] MEDS: MIDODRINE HCL 10 MG TAB PO SCH ×3 (07:57→18:00)
[2022-03-06] MEDS: SEVELAMER 800 MG TAB PO SCH ×4 (08:00→18:00)
[2022-03-06] MEDS: InsuLIN REG 1unit/0.01ml Soln (100units/ml) SC SCH ×4 (08:01→18:00)
[2022-03-06] MEDS: PANTOPRAZOLE 40 MG/10 ML VIAL INJ IV SCH (10:00)
[2022-03-06] MEDS: SODIUM FERR GLUC 62.5MG/5ML 125 MG in SODIUM CHL 0.9% 100 ML IV SCH (12:00)
[2022-03-06] MEDS: TAMSULOSIN HYDROCHLORIDE 0.4 MG CAP PO SCH (18:00)
== END 2022-03-06 19:00 | disposition home or self-care (01) ==
LOC: EDUNIT# 14:45 → EDBD 14:45 → ER 14:45 → TELE 20:51 → TELE-WESTW 03-03 09:30
PROVIDERS: ADMIT Nurse Practitioner; ATTEND Internal Medicine
PROC: 5A1D70Z Performance of Urinary Filtration, Intermittent, Less than 6 Hours Per Day (ICD-10-PCS; 2022-03-03)
PROC: 0W9G3ZZ Drainage of Peritoneal Cavity, Percutaneous Approach (ICD-10-PCS; principal; 2022-03-04)
PROC: 5A1D70Z Performance of Urinary Filtration, Intermittent, Less than 6 Hours Per Day (ICD-10-PCS; 2022-03-05)
DX: K74.60 Unspecified cirrhosis of liver (principal); R18.8 Other ascites; N18.6 End stage renal disease; I50.40 Unspecified combined systolic (congestive) and diastolic (congestive) heart failure; I95.9 Hypotension, unspecified; D63.1 Anemia in chronic kidney disease; E11.51 Type 2 diabetes mellitus with diabetic peripheral angiopathy without gangrene; R19.7 Diarrhea, unspecified; E11.22 Type 2 diabetes mellitus with diabetic chronic kidney disease; Z20.822 Contact with and (suspected) exposure to COVID-19; D50.9 Iron deficiency anemia, unspecified; R14.0 Abdominal distension (gaseous); Z95.0 Presence of cardiac pacemaker; Z99.2 Dependence on renal dialysis; Z88.8 Allergy status to other drugs, medicaments and biological substances
CPT/HCPCS: 36415; 71045; 76705; 76942; 80048; 80053; 82140; 82728; 82962; 83540; 83550; 83735; 83880; 83986; 84484; 85025; 85610; 85730; 87205; 87493; 89051; 90935; 93005; 93306; C9113; G0378; J1642; J1815; P9047